=== PATIENT | male | born 1980 | race Caucasian/White ===

== ENCOUNTER → 2018-12-19 | Outpatient (CLI) | payer MEDICARE | END | disposition home or self-care (01) | LOC: RAH 13:03 | PROVIDERS: ATTEND Physical Medicine & Rehabilitation | DX: N32.89 Other specified disorders of bladder (principal) | CPT/HCPCS: 76775 ==

== ENCOUNTER → 2020-11-29 | Outpatient (CLI) | payer MEDICARE | END | disposition home or self-care (01) | LOC: RAH 14:05 | PROVIDERS: ATTEND Physical Medicine & Rehabilitation | DX: S82.292G Other fracture of shaft of left tibia, subsequent encounter for closed fracture with delayed healing (principal); M25.572 Pain in left ankle and joints of left foot; X58.XXXD Exposure to other specified factors, subsequent encounter | CPT/HCPCS: 73700 ==

== ENCOUNTER → 2021-01-04 | Outpatient (CLI) | payer MEDICARE | END | disposition home or self-care (01) | LOC: RAH 11:56 | PROVIDERS: ATTEND Physical Medicine & Rehabilitation | DX: S82.302D Unspecified fracture of lower end of left tibia, subsequent encounter for closed fracture with routine healing (principal); M21.6X2 Other acquired deformities of left foot; M25.872 Other specified joint disorders, left ankle and foot | CPT/HCPCS: 73610 ==